=== PATIENT | female | born 1975 | race American Indian/Alaskan Native ===

== ENCOUNTER 2016-12-28 08:36 | Outpatient (CLI) | payer MEDICAID ==
[2016-12-28] MEDS ORDERED: WATER FOR INJ (PF) 10 ML ONE (10:09)
[2016-12-28] MEDS ORDERED: KINEVAC IV ONE ×2 (10:09→13:00)
[2016-12-28] MEDS ORDERED: WATER FOR INJ (PF) IV ONE (13:00)
--- NOTE | 2016-12-29 10:12 | Nuclear Medicine Report ---
HIDA WITH CCK INDICATION: Right upper quadrant pain, nausea, gallstones. COMPARISON: None similar at this institution. FINDINGS: Dynamic right upper quadrant imaging performed in the anterior projection over 60 minutes following uneventful intravenous administration of 5 mCi of Technetium 99m Choletec. Prompt though heterogeneous hepatic radiotracer uptake with large rounded uptake in the right hepatic lobe towards the dome seen initially as also a crescentic uptake along the inferiomedial margin of the liver, somewhat triangular at inferior right hepatic lobe tip. Normal subsequent hepatic washout though seen. Gallbladder activity reliably noted at 20 minutes and bowel activity seen at 60 minutes. Subsequently, 1.72 mcg of cholecystokinin infused intravenously over a period of 3 minutes with patient's symptoms duplicated. The calculated ejection fraction is 24% at 10 minutes, 10% at 20 minutes and 5% at 30 minutes (normal greater than 35%). CONCLUSION: 1. Biliary dyskinesia with patient's symptoms reproduced following CCK, as described. Please correlate. 2. Heterogeneous liver uptake with normal subsequent washout. Additional liver mass protocol CT or MRI correlation may though be obtained to exclude underlying lesions/masses, as appropriate and if not already performed elsewhere. Thank you for the opportunity to participate in this patient's care.
== END 2016-12-28 08:37 | disposition home or self-care (01) ==
LOC: NM 08:36
PROVIDERS: ATTEND Surgery
DX: K82.8 Other specified diseases of gallbladder (principal); R25.2 Cramp and spasm; K59.00 Constipation, unspecified
CPT/HCPCS: 78227; A9537; J2805

== ENCOUNTER 2017-01-04 08:01 | Outpatient (CLI) | payer MEDICAID ==
--- NOTE | 2017-01-04 10:51 | Magnetic Resonance Report ---
MRI PELVIS WITHOUTAND WITH CONTRAST: 01/04/17 CLINICAL: Pelvic pain and bleeding. COMPARISON :None. TECHNIQUE: Sagittal, coronal and axial T1 and T2 fat sat sequences plus sagittal, coronal and axial postcontrast T1 sequences on a 1.5 Sandra magnet. 15 cc of Multihance was injected intravenously for the contrast portion of the exam and consent was obtained prior to the administration of contrast. FINDINGS: An enlarged fibroid uterus measures 12.7 x 7.0 x 6.6 cm. A single posterior fundal intramural fibroid measures 4.8 cm diameter. It may have a small submucosal component. It demonstrates homogeneous enhancement both on initial and delayed phases post contrast. No other fibroids are identified. The endometrium is normal and measures 4.6 mm AP thickness. Normal right ovary with a dominant 2.3 cm follicle. The right ovary measures 3.8 x 2.2 x 1.9 cm. Normal left ovary with a dominant 9 mm follicle. The left ovary is smaller than the right but the margins are not well delineated for measurement. No adnexal mass or free fluid. The bones and soft tissues are normal. IMPRESSION: 1. A mildly enlarged fibroid uterus with a single 4.8 cm posterior fundal intramural fibroid. 2. Normal endometrium. 3. Normal ovaries.
== END 2017-01-04 08:02 | disposition home or self-care (01) ==
LOC: SPVIMAG 08:01
PROVIDERS: ATTEND Radiology Vascular & Interventional Radiology
DX: D25.9 Leiomyoma of uterus, unspecified (principal); N85.2 Hypertrophy of uterus
CPT/HCPCS: 72197; A9577